=== PATIENT | female | born 1970 ===

== ENCOUNTER 2018-01-08 12:34 | Emergency (ER) | payer OTHER ==
[2018-01-08 12:44] VITALS: BP 126/72; PULSE 97; RESP 16; TEMP 97.9; O2SAT 98
--- NOTE | 2018-01-08 14:24 | ED PDOC ---
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) History/Exam Limitations: no limitations Onset/Duration Of Symptoms: Days (acute on chronic episode the last 2 days) Outside of [place] travel?: No Current Symptoms Are (Timing): Still Present Severity: Mild Location Of Pain/Discomfort: Diffuse Quality Of Discomfort: Pressure Associated Symptoms: denies: Fever, Chills, Nausea, Vomiting, Diarrhea, Loss Of Appetite, Back Pain, Chest Pain, Urinary Symptoms Last Bowel Movement: Today Additional Complaint(s): 47 year old female presents to the emergency department with a complaint of abdominal pain described as bloating associated with constipation and hard non- bloody stools ongoing for 2 days. Patient reports pain with her bowel movements due to straining and hemorrhoids, which she has had since her . Patient reported using a suppository prescribed from clinic for the last 2 weeks until it ran out. Last BM was reported to be this morning. Patient states she tends to get constipated and this has been an ongoing problem for the past 2 years. Patient reports she took no medications prior to arrival in ED today. Otherwise: (-) fever (-) nausea (-) vomiting (-) diarrhea (-) vaginal bleeding ( -) vaginal discharge (-) recent weight loss (-) travel (-) prior abdominal surgeries (-) SOB (-) cough (-) urinary complaints. PMD: [facility] Abnormal Vaginal Bleeding: No Past Medical History Reviewed: Historical Data, Nursing Documentation, Vital Signs Vital Signs: Last Vital Signs Temp 97.9 F 01/08/18 12:41 Pulse 97 H 01/08/18 12:41 Resp 16 01/08/18 12:41 BP 126/72 01/08/18 12:41 Pulse Ox 98 01/08/18 14:41 - Medical History PMH: No Chronic Diseases - Surgical History Surgical History: No Surg Hx - Family History Family History: States: Unknown Family Hx - Social History Current smoker - smoking cessation education provided: No Alcohol: None Drugs: Denies - Home Medications Home Medications: Ambulatory Orders Medication Instructions Recorded Docusate Sodium [Colace] 100 mg PO BID PRN #20 capsule 01/08/18 - Allergies Allergies/Adverse Reactions: Allergies Allergy/AdvReac Type Severity Reaction Status Date / Time No Known Allergies Allergy Verified 01/08/18 12:41 Review of Systems ROS Statement: Except As Marked, All Systems Reviewed And Found Negative Constitutional: Negative for: Fever, Chills Cardiovascular: Negative for: Chest Pain Respiratory: Negative for: Cough, Shortness of Breath Gastrointestinal: Positive for: Constipation, Other (hard stools). Negative for : Nausea, Vomiting Genitourinary Female: Negative for: Dysuria Skin: Negative for: Rash Physical Exam - Reviewed Nursing Documentation Reviewed: Yes Vital Signs Reviewed: Yes - Physical Exam Appears: Positive for: Well, Non-toxic, No Acute Distress Head Exam: Positive for: ATRAUMATIC, NORMOCEPHALIC Skin: Positive for: Normal Color, Warm, Dry. Negative for: Rash, Jaundice Eye Exam: Positive for: EOMI, PERRL ENT: Positive for: Other (Mucus membranes moist.) Neck: Positive for: Painless ROM, Supple Cardiovascular/Chest: Positive for: Regular Rate, Rhythm. Negative for: Bradycardia, Tachycardia Respiratory: Positive for: Normal Breath Sounds. Negative for: Decreased Breath Sounds, Accessory Muscle Use, Respiratory Distress Gastrointestinal/Abdominal: Positive for: Bowel Sounds (active x4), Soft. Negative for: Tenderness, Organomegaly, Mass, Distended, Guarding, Rebound, Asicites Back: Negative for: L CVA Tenderness, R CVA Tenderness Extremity: Negative for: Deformity (upper/lower) Neurologic/Psych: Positive for: Alert, Oriented, Gait (steady). Negative for: Aphasia, Facial Droop - ECG O2 Sat by Pulse Oximetry: 98 (RA) Pulse Ox Interpretation: Normal Medical Decision Making Medical Decision Making: Initial Impression: Constipation Initial Plan: * Colace 200mg PO Time: 1425 --Upon provider evaluation, patient is medically stable and requires no further treatment in the ED at this time. Patient will be discharged home with Rx for Colace. Educated on high fiber diet. Counseling was provided and all questions were answered regarding diagnosis and need for follow up with claims account manager. There is agreement to discharge plan. Return if symptoms persist or worsen. Clinical Impression: Acute/chronic constipation Scribe Attestation: Documented by Eduarda Shrestha, acting as a scribe for Meghan Nolasco PA-C. Provider Scribe Attestation: All medical record entries made by the Scribe were at my direction and personally dictated by me. I have reviewed the chart and agree that the record accurately reflects my personal performance of the history, physical exam, medical decision making, and the department course for this patient. I have also personally directed, reviewed, and agree with the discharge instructions and disposition. Disposition - Clinical Impression Clinical Impression: Constipation, acute, Constipation, chronic - Patient ED Disposition Is Patient to be Admitted: No Counseled Patient/Family Regarding: Diagnosis, Need For Followup - Disposition Disposition: Routine/Home Disposition Time: 14:25 Condition: STABLE Additional Instructions: Follow up with GI Dr. Stephen Haynes [address] [address], [address] [place] [address] PHONE NUMBER FAX NUMBER Prescriptions: Docusate Sodium [Colace] 100 mg PO BID PRN #20 capsule PRN Reason: Constipation Instructions: Constipation in Adults, High Fiber Diet Forms: [employer] (Rwandan) Print Language: IRANIAN
== END 2018-01-08 15:23 | disposition home or self-care (01) ==
LOC: H.ER 12:34
DX: K59.09 Other constipation (principal)

== ENCOUNTER 2018-01-12 11:28 | Emergency (ER) | payer OTHER ==
[2018-01-12 12:01] VITALS: BP 124/78; PULSE 78; TEMP 98.6; O2SAT 98
--- NOTE | 2018-01-12 13:06 | ED PDOC ---
HPI: Abdomen Time Seen by Provider: 01/12/18 12:49 Chief Complaint (Nursing): Abdominal Pain Chief Complaint (Provider): abd pain, rectal pain History Per: Patient Additional Complaint(s): 47-year-old female presents with abdominal discomfort and constipation. Patient is able to have bowel movements but has rectal and abdominal pain when going. She does have known small external hemorrhoid. She denies rectal bleeding, fever or chills. No vomiting. Patient is tolerating liquids and solids. She was seen in ED 5 days ago and was given prescription for Colace but states this hasn 't helped her. PMD: none Past Medical History Reviewed: Historical Data, Nursing Documentation, Vital Signs Vital Signs: Last Vital Signs Temp 98.6 F 01/12/18 11:57 Pulse 78 01/12/18 11:57 Resp BP 124/78 01/12/18 11:57 Pulse Ox 98 01/12/18 13:06 - Medical History PMH: No Chronic Diseases - Family History Family History: States: No Known Family Hx - Living Arrangements Living Arrangements: With Family - Social History Current smoker - smoking cessation education provided: No Alcohol: None Drugs: Denies - Home Medications Home Medications: Ambulatory Orders Medication Instructions Recorded Docusate Sodium [Colace] 100 mg PO BID PRN #20 capsule 01/08/18 Hard Fat/Phenylephrine [place] 1 sup RC BID #30 sup 01/12/18 [Anusol Suppository] Polyethylene Glycol 3350 [Miralax] 1 bottle PO DAILY #1 bottle 01/12/18 - Allergies Allergies/Adverse Reactions: Allergies Allergy/AdvReac Type Severity Reaction Status Date / Time No Known Allergies Allergy Verified 01/12/18 11:57 Review of Systems ROS Statement: Except As Marked, All Systems Reviewed And Found Negative Constitutional: Negative for: Fever, Chills Gastrointestinal: Positive for: Abdominal Pain, Constipation. Negative for: Nausea, Vomiting, Diarrhea Genitourinary Female: Negative for: Dysuria Physical Exam - Reviewed Nursing Documentation Reviewed: Yes Vital Signs Reviewed: Yes - Physical Exam Appears: Positive for: Well, Non-toxic, No Acute Distress Skin: Negative for: Rash Eye Exam: Positive for: Normal appearance Cardiovascular/Chest: Positive for: Regular Rate, Rhythm Respiratory: Positive for: Normal Breath Sounds. Negative for: Respiratory Distress Gastrointestinal/Abdominal: Positive for: Soft. Negative for: Tenderness, Distended, Guarding, Rebound Back: Negative for: L CVA Tenderness, R CVA Tenderness Rectal: Positive for: Other (small, nonthrombosed external hemorrhoid) Extremity: Positive for: Normal ROM Neurologic/Psych: Positive for: Alert, Oriented - ECG O2 Sat by Pulse Oximetry: 98 Pulse Ox Interpretation: Normal - Other Rad KUB X-Ray: Interpreted by Me, Viewed By Me X-Ray Interpretation: moderate feces, no obstruction Medical Decision Making Medical Decision Makin47 year old with constipation. Abdominal exam is benign Plan: KUB Mag citrate Patient aware of x-ray results. All questions answered. Rx given for miralax and anusol suppositories. Patient was referred to clinic for follow up. Disposition - Clinical Impression Clinical Impression: Constipation, acute - Patient ED Disposition Is Patient to be Admitted: No Counseled Patient/Family Regarding: Studies Performed, Diagnosis, Need For Followup, Rx Given - Disposition Referrals: [facility] [Outside] Disposition: Routine/Home Disposition Time: 16:11 Condition: STABLE Additional Instructions: Take rx meds as directed. Follow dietary instructions. Follow up with clinic. Prescriptions: Hard Fat/Phenylephrine [place] [Anusol Suppository] 1 sup RC BID #30 sup Polyethylene Glycol 3350 [Miralax] 1 bottle PO DAILY #1 bottle Instructions: Constipation in Adults, High Fiber Diet Forms: [email or web address] (Swiss) Print Language: LITHUANIAN
[2018-01-12] MEDS ORDERED: Magnesium Citrate Oral SOL (300 ml) PO STA (14:55)
[2018-01-12] MEDS ORDERED: Magnesium Citrate Oral SOL (300 ml) ONE (15:12)
--- NOTE | 2018-01-12 16:19 | RAD ---
HISTORY: constipation COMPARISON: No prior. FINDINGS: BOWEL: No obstruction. No free air. BONES: Normal. OTHER FINDINGS: None. IMPRESSION: No active disease.
== END 2018-01-12 17:26 | disposition home or self-care (01) ==
LOC: H.ER 11:28
DX: K59.00 Constipation, unspecified (principal)